=== PATIENT | female | born 1980 | race Caucasian/White ===

== ENCOUNTER 2024-12-18 19:17 | Inpatient (IN) | payer OTHER ==
[2024-12-18 19:38] VITALS: BMI 23.3
[2024-12-18] MEDS ORDERED: BENZONATATE 200 MG CAPSULE PO PRN (21:06)
[2024-12-18] MEDS ORDERED: POLYETHYLENE GLYCOL (HEALTHYLAX) 3350 17 GM PACKET PO PRN (21:06)
[2024-12-18] MEDS ORDERED: MAG HYDROX/AL HYDROX/SIMETH 30 ML UNIT-DOSE CUP PO PRN (21:06)
[2024-12-18] MEDS ORDERED: ACETAMINOPHEN 325 MG TABLET (FP) PO PRN (21:06)
[2024-12-18] MEDS ORDERED: NALOXONE (NARCAN) HCL 4 MG/0.1 ML SPRAY NS PRN (21:06)
[2024-12-18] MEDS ORDERED: BENZOCAINE/MENTHOL (CHLORASEPTIC ) LOZENGE MM PRN (21:06)
[2024-12-18] MEDS ORDERED: MAGNESIUM HYDROX 2400MG/30ML ORAL SUSPENSION 30 ML CUP PO PRN (21:06)
[2024-12-18] MEDS ORDERED: BISMUTH SUBSALICYLATE 524 MG/30 ML PO PRN (21:06)
[2024-12-18] MEDS ORDERED: NICOTINE POLACRILEX 2 MG GUM BUC PRN (21:06)
[2024-12-18] MEDS ORDERED: LOPERAMIDE HCL 2 MG CAPSULE PO PRN (21:06)
[2024-12-18] MEDS ORDERED: guaiFENesin 600 MG TABLET.ER (FP) PO PRN (21:06)
[2024-12-18] MEDS ORDERED: DICYCLOMINE HCL 10 MG CAPSULE PO PRN (21:06)
[2024-12-18] MEDS ORDERED: hydrOXYzine PAMOATE 25 MG CAPSULE (FP) PO ONE (21:44)
[2024-12-18] MEDS: hydrOXYzine PAMOATE 25 MG CAPSULE (FP) PO PRN (21:45)
[2024-12-18] MEDS: THIAMINE 100 MG TABLET PO SCH (22:29)
[2024-12-18] MEDS: diazePAM 5 MG TABLET PO SCH (22:29)
[2024-12-18] MEDS: MELATONIN 5 MG TABLETS PO SCH (22:29)
[2024-12-19 09:01] LABS: HEMATOCRIT 31.3 % (34.1-44.9); HEMOGLOBIN 10.3 g/dL (11.2-15.7); MCHC 32.9 g/dl (32.2-35.5); MEAN CELL VOLUME 88.9 fl (79.4-94.8); MEAN PLT VOLUME 9.6 fl (9.4-12.3); PLATELET COUNT 174 x10^3/uL (182-369); RDW 14.2 % (12.2-17.1)
[2024-12-19 09:03] LABS: CHLORIDE 104 mmol/L (98-107); POTASSIUM 3.8 mmol/L (3.5-5.1); SODIUM 141 mmol/L (136-145)
[2024-12-19 09:07] LABS: ALBUMIN 3.2 g/dl (3.4-5.0); ANION GAP 8 mmol/L (4-13); BLOOD UREA NITROGEN 10.5 mg/dL (7-18); CALCIUM 9.2 mg/dL (8.5-10.1); CO2 30 mmol/L (21-32); GLUCOSE,RANDOM 98 mg/dL (74-106)
[2024-12-19 09:09] LABS: CREATININE 0.7 mg/dL (0.55-1.3); SGOT/AST 182 U/L (15-37); SGPT/ALT 196 U/L (13-61)
[2024-12-19 09:11] LABS: BILIRUBIN,TOTAL 0.4 mg/dL (0.2-1); TOT PROT 6.6 g/dl (6.4-8.2)
[2024-12-19 09:12] LABS: ALK PHOS 104 U/L (45-117)
[2024-12-19] MEDS: PRENATAL VITAMINS W/ FOLIC ACID TABLET (FP) PO SCH (10:11)
[2024-12-19] MEDS: NICOTINE 14 MG/24 HOURS TOPICAL PATCH TD SCH (10:11)
[2024-12-19] MEDS: ONDANSETRON *ODT* 4 MG TABLET SL PRN (15:04)
[2024-12-19] MEDS: IBUPROFEN 400 MG TABLET (FP) PO PRN (15:04)
[2024-12-19] MEDS: METHOCARBAMOL 500 MG TABLET PO PRN (17:16)
[2024-12-19] MEDS: IBUPROFEN 600 MG TABLET (FP) PO PRN (19:45)
[2024-12-19] MEDS: diazePAM 5 MG TABLET PO PRN (19:46)
[2024-12-19] MEDS: MELATONIN 5 MG TABLETS PO SCH (22:21)
[2024-12-20] MEDS: diazePAM 5 MG TABLET PO SCH (05:48)
[2024-12-20 11:41] LABS: POTASSIUM 3.8 mmol/L (3.5-5.1)
[2024-12-20 11:49] LABS: CALCIUM 9.3 mg/dL (8.5-10.1)
[2024-12-20 11:50] LABS: BLOOD UREA NITROGEN 14.4 mg/dL (7-18)
[2024-12-20 11:52] LABS: CREATININE 0.7 mg/dL (0.55-1.3)
[2024-12-20 11:54] LABS: BILIRUBIN,TOTAL 0.2 mg/dL (0.2-1)
[2024-12-21] MEDS: diazePAM 5 MG TABLET PO SCH (05:50)
[2024-12-22] MEDS: diazePAM 5 MG TABLET PO ONE (05:24)
[2024-12-22 05:46] VITALS: TEMP 97.8
[2024-12-22 11:19] VITALS: BP 136/88; PULSE 64; RESP 17
== END 2024-12-22 10:38 | disposition home or self-care (01) | DRG 774 ==
LOC: YASAS 19:17 → Y3N 21:59
PROVIDERS: ADMIT Allergy & Immunology; ATTEND Allergy & Immunology
PROC: HZ2ZZZZ Detoxification Services for Substance Abuse Treatment (ICD-10-PCS; principal; 2024-12-18)
DX: F10.230 Alcohol dependence with withdrawal, uncomplicated (principal); F14.20 Cocaine dependence, uncomplicated; F17.210 Nicotine dependence, cigarettes, uncomplicated; F32.A Depression, unspecified; F41.9 Anxiety disorder, unspecified; F64.0 Transsexualism; G47.00 Insomnia, unspecified; R74.01 Elevation of levels of liver transaminase levels; R76.8 Other specified abnormal immunological findings in serum; Z59.00 Homelessness unspecified
CPT/HCPCS: 36415; 80053; 80305; 80307; 85027; 86593; 86780; 93005; 93010; Q0162